=== PATIENT | female | born 1960 | race Caucasian/White ===

== ENCOUNTER 2018-04-06 16:40 | Emergency (ER) | payer MEDICARE ==
[~2018-04-06] VITALS: Ht 165.1 cm; Wt 63.5 kg
[2018-04-06] MEDS ORDERED: ASPIRIN 325 MG TAB PO ONE (17:00)
== END 2018-04-06 18:46 | disposition home or self-care (01) ==
LOC: FSED 16:40
DX: R07.89 Other chest pain (principal); K21.9 Gastro-esophageal reflux disease without esophagitis; F41.9 Anxiety disorder, unspecified; F32.9 Major depressive disorder, single episode, unspecified
CPT/HCPCS: 71046; 80053; 81003; 84484; 85025; 85379; 85610; 99284

== ENCOUNTER 2019-03-30 14:20 | Emergency (ER) | payer MEDICARE ==
[~2019-03-30] VITALS: Ht 167.6 cm; Wt 63.2 kg
[2019-03-30] MEDS ORDERED: ASPIRIN 81 MG CHEW TAB PO STA (14:50)
[2019-03-30] MEDS ORDERED: ASPIRIN 81 MG CHEW TAB ONE (15:12)
--- NOTE | 2019-03-30 15:34 | Diagnostic Imaging Report ---
EXAMINATION: Chest PA and lateral views INDICATION: Chest pain for one week. COMPARISON: None FINDINGS: TUBES and LINES: None. LUNGS: Lungs are well inflated. Lungs are clear. There is no evidence of pneumonia or pulmonary edema. PLEURA: No pleural effusion or pneumothorax. HEART AND MEDIASTINUM: The cardiomediastinal silhouette is unremarkable. BONES AND SOFT TISSUES: No acute osseous lesion. Soft tissues are unremarkable. UPPER ABDOMEN: No free air under the diaphragm. IMPRESSION: No acute thoracic abnormality. Signed by: Dr. Shaka Pierre M.D. on 03/30/2019 3:31 PM
[2019-03-30] MEDS ORDERED: EFFEXOR XR 3737.5 MG (20:13)
[2019-03-30] MEDS ORDERED: AMBIEN10 MG PO (20:13)
[2019-03-30] MEDS ORDERED: LORAZEPAM1 MG PO (20:13)
[2019-03-30] MEDS ORDERED: AMITRIPTYLINE H10 MG PO (20:13)
[2019-03-30 20:17] VITALS: BP 118/72
== END 2019-03-30 16:10 | disposition home or self-care (01) ==
LOC: FSED 14:20
DX: R07.89 Other chest pain (principal)
CPT/HCPCS: 71046; 80048; 80076; 82553; 84484; 85025; 93005; 99284